=== PATIENT | female | born 1970 | race Caucasian/White ===

== ENCOUNTER → 2023-11-01 10:53 | Outpatient (REF) | payer OTHER, SELFPAY | LOC: RAD 10:53 | PROVIDERS: ATTENDING PHYSICIAN Nurse Practitioner; FAMILY PHYSICIAN Family Medicine | DX: R35.0 Frequency of micturition (principal); R39.15 Urgency of urination | CPT/HCPCS: 76770; 76856 ==

== ENCOUNTER → 2023-11-12 09:44 | Outpatient (REF) | payer OTHER, SELFPAY | LOC: WDC 09:44 | PROVIDERS: ATTENDING PHYSICIAN Obstetrics & Gynecology; FAMILY PHYSICIAN Family Medicine | DX: Z12.31 Encounter for screening mammogram for malignant neoplasm of breast (principal) | CPT/HCPCS: 77063; 77067 ==

== ENCOUNTER 2023-12-09 06:14 | Day surgery (SDC) | payer OTHER, SELFPAY ==
[2023-11-28 07:08] VITALS: BMI 33.1
[2023-11-28 08:57] LABS: Hematocrit 39.8 % (37.0-47.0); Mean Corp Hgb Conc. 32.7 g/dL (33.0-37.0); Mean Corpuscular Hgb 28.8 pg (27.0-31.0); Mean Corpuscular Volume 88.2 fL (81.0-99.0); Mean Platelet Volume 10.2 fL (7.4-10.4); Platelet Count 242 10^3/uL (130-400); Red Blood Cell Count 4.51 10^6/uL (4.20-5.40); Urine Albumin Negative (Neg - Trace); Urine Bilirubin Negative (Negative); Urine Character Slightly Cloudy (Clear); Urine Color Yellow; Urine Glucose Negative (Negative); Urine Ketone Negative (Negative); Urine Leukocyte Negative (Negative); Urine Nitrite Negative (Negative); Urine Occult Blood Negative (Negative); Urine Urobilinogen Negative (Neg - 1+); White Blood Cell Count 4.7 10^3/uL (4.8-10.8)
[2023-11-28 09:09] LABS: APTT 30.3 Sec (23.4-35.0); INR 1.03; PT 13.3 Sec (11.4-14.6)
[2023-11-28 09:22] LABS: Blood Urea Nitrogen 19 mg/dl (7-17); Calcium 9.8 mg/dl (8.4-10.2); Carbon Dioxide 26 mmol/L (22-30); Chloride 105 mmol/L (98-107); Estimated Creatinine Clearance 87 ml/min; Glucose 90 mg/dl (70-99); Potassium 5.1 mmol/L (3.5-5.1); Sodium 139 mmol/L (135-145); eGFR > 60.00
[2023-12-09] VITALS (7 sets, daily range): BP systolic 98–146; BP diastolic 65–84; BMI 33.1
[2023-12-09] MEDS: Pyridium 200 MG PO (13:16)
== END 2023-12-09 14:23 | disposition home or self-care (01) ==
LOC: SDS 06:14
PROVIDERS: ATTENDING PHYSICIAN Surgery; FAMILY PHYSICIAN Family Medicine; OTHER PHYSICIAN Obstetrics & Gynecology
DX: N32.89 Other specified disorders of bladder (principal)
CPT/HCPCS: 52204; 88305; 36415; 80048; 81003; 85027; 85610; 85730; 93005

== ENCOUNTER 2024-04-05 17:53 | Emergency (ER) | payer OTHER, SELFPAY ==
[2024-04-05 17:55] VITALS: BP 159/99
--- NOTE | 2024-04-05 19:11 | ED.GENMED ---
History of Present Illness
General
Chief Complaint: Skin Problem
Time Seen by Provider: 04/05/24 19:10
History of Present Illness
History of Present Illness:
53-year-old female presents to the emergency department for evaluation of a worsening rash, rash began to the left inner lower leg yesterday. Denies any known contact with irritant plant or any new soaps or detergents. She was seen in urgent care
yesterday and started on triamcinolone cream which does not seem to be helping. She noticed new lesions to the right lower leg as well as to the waist circumferentially. She denies any fevers or chills. Denies any abdominal pain.
Past History
Past History
ED Past Medical History: None
ED Past Surgical History: None
Social History
Personal:
Living: with family
Employment: Employed
Review of Systems
Review of Systems
Allergies reviewed?: Yes
All Other Systems: ROS reviewed and negative except as documented in HPI and ROS
Phy Exam
Physical Exam
Physical Exam:
GEN: Well appearing, NAD, WDWN
HEENT: Oral mucosa moist, no scleral icterus
Cardiac: Regular rate
Lung: No respiratory distress, no tachypnea
MSK: No gross deformity or injuries
Skin: Good color, no pallor or jaundice. Clustered vesicular lesions on an erythematous base to the left inner lower leg, few lesions scattered to the right anterior lower leg. Urticarial lesions in a bandlike appearance around the waist
circumferentially. No petechiae
Neuro: AO x3, moves all extremities freely
Psych: Calm, cooperative
Course
Orders/Labs/Results
Orders:
Orders
04/05/24 19:32
Prednisone [Deltasone] 40 mg PO NOW STA
Vital Signs
Initial and Last Documented VS:
Initial Vital Signs
Temp Pulse Resp BP Pulse Ox
98.9 F 80 16 159/99 98
04/05/24 17:55 09/26/24 17:55 04/05/24 17:55 04/05/24 17:55 04/05/24 17:55
Last Documented Vital Signs
Temp Pulse Resp BP Pulse Ox
98.9 F 74 18 142/79 97
04/05/24 17:55 04/05/24 20:02 04/05/24 20:02 04/05/24 20:02 04/05/24 20:02
MDM/Problems Addressed
MDM/Problems Addressed:
Leg lesions appear to resemble a contact dermatitis whereas the abdominal lesion is urticarial. As topical steroids have not provided any benefit we will treat with oral steroids.
*Critical Care Note
Total Time (30-74mins, 75-104mins- exclusive of procedures): Not Applicable
ED Attending Note
-
Portions of this chart may have been created with voice recognition software.� Occasional wrong word or��sound alike� substitutions may have occurred due to the inherent limitations of voice recognition software.
Discharge Plan
Departure
Patient Disposition: Home (Routine Discharge)
Date of Disposition: 04/05/24
Time of Disposition: 19:32
Patient with high blood pressure during this ER visit?: No
Discharge Problem:
Contact dermatitis
Instructions: Dermatitis ( Contact )
Prescriptions:
New
prednisone 10 mg tablet
10 mg PO DIRECTED Qty: 20 0RF
Rx Instructions:
40mg qd x 2d, then 30mg qd x 2d, then 20mg qd x 2d, then 10mg qd x 2d
No Action
estradiol 0.01 % (0.1 mg/gram) Cream
1 g VAGINAL DIRECTED
Rx Instructions:
Twice weekly
Gemtesa 75 mg Tablet
75 mg PO DAILY
Referrals:
Christo Carmona DO [Family Provider] -
Interventions
Interventions:
*Risk Screen - Suicide Last Done: 04/05/24 17:55
*General Assessment Last Done: 04/05/24 19:11
*Neglect/Abuse Screening Last Done: 04/05/24 19:11
*ED COVID-19 Vaccine History Last Done: 04/05/24 19:11
*Nursing Disposition Last Done: 04/05/24 20:02
ED-Skin Assessment Last Done: 04/05/24 19:11
Discharge Date and Time
Discharge Date/Time: 04/05/24 20:03
Print Language: WELSH
[2024-04-05] MEDS: DELTASONE 40 MG PO (19:48)
[2024-04-05 20:02] VITALS: BP 142/79
== END 2024-04-05 20:03 | disposition home or self-care (01) ==
LOC: EMR 17:53
PROVIDERS: EMERGENCY PHYSICIAN Emergency Medicine; FAMILY PHYSICIAN Family Medicine
DX: L25.9 Unspecified contact dermatitis, unspecified cause (principal)
CPT/HCPCS: 99283